=== PATIENT | female | born 1965 | race Caucasian/White ===

== ENCOUNTER 2016-09-24 08:54 | Day surgery (SDC) | payer OTHER ==
[~2016-09-24 08:54] MED LIST: FENTANYL 250 MCG/5 ML AMP IV PRN; LACTATED RINGERS 1,000 ML IV SCH; MIDAZOLAM HCL 5 MG/5 ML VIAL IV PRN
[2016-09-24] MEDS ORDERED: LACTATED RINGERS 1,000 ML ONE (09:21)
[2016-09-24] MEDS ORDERED: IV START KIT ONE (09:22)
[2016-09-24] MEDS ORDERED: FENTANYL 250 MCG/5 ML AMP ONE (09:29)
[2016-09-24] MEDS ORDERED: MIDAZOLAM HCL 5 MG/5 ML VIAL ONE (09:29)
[2016-09-24] MEDS ORDERED: PROPOFOL 20 ML IV ONE (10:08)
== END 2016-09-24 11:07 | disposition home or self-care (01) ==
LOC: SDC 08:54
PROVIDERS: ATTEND Internal Medicine Gastroenterology
PROC: 0DJD8ZZ Inspection of Lower Intestinal Tract, Via Natural or Artificial Opening Endoscopic (ICD-10-PCS; principal; 2016-09-24)
DX: Z12.11 Encounter for screening for malignant neoplasm of colon (principal); Z80.0 Family history of malignant neoplasm of digestive organs; E03.9 Hypothyroidism, unspecified; F41.9 Anxiety disorder, unspecified; G50.0 Trigeminal neuralgia; Z88.8 Allergy status to other drugs, medicaments and biological substances; Z79.82 Long term (current) use of aspirin
CPT/HCPCS: 45378; J3010; J2250; J7120